=== PATIENT | male | born 1955 | race Caucasian/White ===

== ENCOUNTER 2017-02-21 17:08 | Emergency (ER) | payer OTHER ==
[2017-02-21 13:45] LABS: BASOPHILS 0.2 %; BASOPHILS ABSOLUTE 0.02 10/3/uL (0.0-0.16); EOSINOPHILS 1.3 %; EOSINOPHILS ABSOLUTE 0.14 10/3/uL (0.0-0.53); ER CBC TAT 0 Hrs 05 Mins; HEMOGLOBIN 16.8 g/dL (13.6-17.8); IMMATURE GRANULOCYTES 0.3 %; IMMATURE GRANULOCYTES ABSOLUTE 0.03 10/3/uL (0.0-0.11); LYMPHOCYTES 15.5 %; LYMPHOCYTES ABSOLUTE 1.62 10/3/uL (0.67-4.30); MEAN CORPUS HGB CONC 34.3 g/dL (32.0-36.0); MEAN CORPUSCULAR HEMOGLOB 28.4 pg (26.0-34.0); MEAN CORPUSCULAR VOLUME 82.9 fL (80-100); MEAN PLATELET VOLUME 9.9 fL (9.2-13.0); MONOCYTES 7.4 %; MONOCYTES ABSOLUTE 0.77 10/3/uL (0.21-1.20); NEUTROPHILS 75.3 %; NEUTROPHILS ABSOLUTE 7.85 10/3/uL (2.02-8.40); PLATELET COUNT 247 10/3/uL (150-400); RED CELL COUNT 5.91 10/6/uL (4.7-6.1); WHITE BLOOD CELLS 10.4 10/3/uL (4.5-10.5)
[2017-02-21 13:46] LABS: MANUAL DIFF NO %
[2017-02-21 13:55] LABS: INTERNATIONAL NORMAL RATI 1.1 UNITS (-); PARTIAL THROMBO TIME 33.8 SEC (22.5-37.2); PROTIME (NOT ORD) 13.6 SEC (12.0-14.5)
[2017-02-21 14:04] LABS: CALCIUM, SERUM 8.4 MG/DL (8.5-10.4); CHEST PAIN PROFILE TAT 0 Hrs 24 Mins; CHLORIDE, SERUM 98 MMOL/L (96-112); CO2 (CARBON DIOXIDE) 28 MMOL/L (24-34); CREATININE 0.83 MG/DL (0.70-1.30); GFR AFRICAN AMERICAN 109 ML/MIN (>=60); GFR NON AFRICAN AMERICAN 94 ML/MIN (>=60); GLUCOSE, SERUM 103 MG/DL (60-99); POTASSIUM, SERUM 3.4 MMOL/L (3.5-5.3); SODIUM, SERUM 134 MMOL/L (135-148); TROPONIN I <0.02 NG/ML (<0.05)
[2017-02-21 14:05] LABS: BUN (BLOOD UREA NITROGEN) 9 MG/DL (6-23)
[2017-02-21 16:58] LABS: ALBUMIN 3.6 G/DL (3.5-5.0); ALKALINE PHOSPHATASE 68 U/L (45-117); SGPT(ALT) 34 U/L (5-65); TOTAL BILIRUBIN 0.9 MG/DL (0-1.2); TOTAL PROTEIN 8.2 G/DL (6.0-8.5)
[2017-02-21 16:59] LABS: DIRECT BILIRUBIN < 0.1 MG/DL (0.0-0.4); INDIRECT BILIRUBIN(NOT ORDER) 0.8 MG/DL (0.1-0.9)
[2017-02-21 17:00] LABS: SGOT(AST) 32 U/L (5-40)
[~2017-02-21 17:08] MED LIST: ALIGN4 MG PO; CALCIUM/MAG; DEPO-TESTOS100 MG/M1 IM; FISH-EPA1000 MG PO; LIPOTRIAD1 CAP PO; ORAZINC110 MG PO; POLICOSANOL PO; PROTONIX PO; RED YEAS1 PO; Testosterone IM; VITAMIN D1000 UNI1 PO; VITC500 PO; [UNRECOGNIZED DRUG - OTHER] PO
[2017-06-04] MEDS ORDERED: ASAB PO (14:05)
[2017-06-04] MEDS ORDERED: LOVAZA1 GM PO (14:06)
[2017-06-04] MEDS ORDERED: RED YEAS1 PO (14:33)
== END 2017-02-21 17:35 | disposition home or self-care (01) ==
LOC: ER 17:08
PROVIDERS: Hospitalist
DX: R07.9 Chest pain, unspecified (principal); K21.9 Gastro-esophageal reflux disease without esophagitis; Z79.899 Other long term (current) drug therapy
CPT/HCPCS: 71020; 80048; 80076; 83690; 83735; 84484; 85025; 85610; 85730; 93005; 99285